=== PATIENT | male | born 1980 | race Caucasian/White ===

== ENCOUNTER 2022-03-19 05:25 | Observation (INO) ==
[2022-03-19 05:45] VITALS: BMI 32.5
[2022-03-19 06:08] LABS: BILIRUBIN,URINE NEGATIVE (NEGATIVE); BLOOD/HEMOGLOBIN,URINE 2+ (NEGATIVE); GLUCOSE, URINE 4+ (NEGATIVE); KETONES,URINE 1+ (NEGATIVE); LEUKOCYTE ESTERASE ,URINE NEGATIVE (NEGATIVE); NITRITES,URINE NEGATIVE (NEGATIVE); PROTEIN,URINE 3+ (NEGATIVE); UROBILINOGEN,URINE 2+ (NORMAL)
[2022-03-19 06:15] LABS: APPEARANCE,URINE SLIGHTLY HAZY (CLEAR); COLOR,URINE YELLOW (YELLOW)
[2022-03-19 06:16] LABS: BACTERIA,URINE NEGATIVE /HPF (NEGATIVE); SQUAMOUS EPITHELIAL CELL,UR RARE /HPF (NEGATIVE)
[2022-03-19 06:23] LABS: BASOPHILS # (AUTO) 0.1 X10^3/uL (0.0-0.1); BASOPHILS % (AUTO) 0.6 % (0.2-1.0); EOSINOPHILS # (AUTO) 0.3 x10^3/uL (0.0-0.2); EOSINOPHILS % (AUTO) 1.9 % (0.9-2.9); HEMATOCRIT 44.9 % (42.0-54.0); HEMOGLOBIN 15.9 g/dL (13.5-18.0); LYMPHOCYTES # (AUTO) 1.8 X10^3/uL (1.3-2.9); LYMPHOCYTES % (AUTO) 13.4 % (21.0-51.0); MEAN CORPUSCULAR HEMOGLOBIN 29.1 pg (27.0-34.0); MEAN CORPUSCULAR HGB CONC 35.5 g/dL (33.0-35.0); MEAN CORPUSCULAR VOLUME 81.9 fL (80.0-100.0); MEAN PLATELET VOLUME 9.2 fL (7.4-11.0); MONOCYTES # (AUTO) 1.2 x10^3/uL (0.3-0.8); NEUTROPHILS # (AUTO) 10.3 x10^3/uL (2.2-4.8); NEUTROPHILS % (AUTO) 75.1 % (42.0-75.0); RED BLOOD COUNT 5.48 X10^6/uL (4.7-6.0); RED CELL DISTRIBUTION WIDTH 13.2 % (11.6-16.5); WHITE BLOOD COUNT 13.7 X10^3/uL (3.6-10.0)
[2022-03-19 06:30] LABS: BLOOD UREA NITROGEN 18 mg/dL (7-18); CALCIUM 8.7 mg/dL (8.5-10.1); CARBON DIOXIDE 30.6 mmol/L (21-32); CHLORIDE 101 mmol/L (98-107); COR NA(FOR HYPERGLY) 141 mmol/L (136-145); CREATININE 1.17 mg/dL (0.70-1.30); SODIUM 137 mmol/L (136-145); eGFR NON BLACK RACES > 60 (>60)
--- NOTE | 2022-03-19 06:39 | RAD ---
HISTORYAbdominal pain diarrheaSTUDYAbdomen series with PA chest 6 [id number] chest: No acute findings.Abdomen series: Supine and upright views demonstrate moderately severe selective small-bowel dilatation, with paucity of colon gas. No definite air-fluid level formation or free air is identified. No organ enlargement or ascites demonstrated.IMPRESSIONSelective small-bowel dilatation with relative absence of colon gas is consistent with small-bowel obstruction. Follow-up recommended.Electronically signed by: MURIEL ASHLEY (Mar 19, 2022 06:37:43)
--- NOTE | 2022-03-19 06:48 | DR.ABDMALE ---
HPI Time seen Time Seen by Provider: 03/19/22 06:45 PCP Primary Care Physician: EDILBERTO HPI comment HPI Comment: A 41 y/o male presenting with abdominal pain for over 1 day now. He denies dizziness but that has resolved. The pain is vertical and midline. He describes this as a baseline constant dull ache with periods of exacerbation. Complaint Chief Complaint:: Pt ambulatory in ED with c/o sharp abd pain with diarrhea since saturday. states abd is hard from upper abd to lower abd. denies dizziness and weakness now. states the dizziness and weakness was saturday from not taking his blood pressure and blood sugar meds that day. states those symptoms subsided once he took his meds. COVID-19 Coronavirus risk:travel/contact w/high risk person: No Has patient experienced Coronavirus symptoms: No Reviewed Nurses Notes Review: Yes Source History provided by:: pt. Mode of arrival Mode of Arrival: Ambulatory Timing Onset of Chief Complaint: 03/17/22 Duration Duration: Constant How lon Duration: Days Location Location: Diffuse Severity Severity: Moderate Quality Quality: Aching and Cramping Context Onset: Gradually History of: None Modifying factors Worsening Factors: Nothing Associated signs and symptoms Associated Signs and Symptoms: Nausea PMH PMH Past Medical History: Yes Past Medical History: Anxiety, Asthma, Diabetes and Hypertension Past Surgical History: No Surgical History: No History Family History History of Family Medical Conditions: Yes Family Medical History: Diabetes Mellitus, Cancer, OR, Coronary Artery Disease, Heart Failure and Hypertension Social History Does patient currently use any type of tobacco product: No Have you used tobacco products in the last 12 months: No Type of Tobacco Use: None Does any household member use tobacco: No Alcohol Use: None Do you use any recreational Drugs:: No Lives With: Family Lives Where: Home Travel Risk Coronavirus risk:travel/contact w/high risk person: No Has patient experienced Coronavirus symptoms: No Infectious screening In the last 2 months have you had wt loss of >10#?: NO Have you had fever, night sweats or hemotysis?: No Have you traveled outside the country in the last 6 months?: No Isolation: Standard ROS Review of Systems Constitutional: No Symptoms Reported Eyes: No Symptoms Reported ENTM: No Symptoms Reported Respiratoy: No Symptoms Reported Cardiovascular: No Symptoms Reported Gastrointestinal/Abdominal: Abdominal Pain, Diarrhea and Nausea Genitourinary: No Symptoms Reported Neurological: No Symptoms Reported Musculoskeletal: No Symptoms Reported Integumentary: No Symptoms Reported Hematologic/Lymphatic: No Symptoms Reported Endocrine: No Symptoms Reported Psychiatric: No Symptoms Reported All Other Systems: Reviewed and Negative PE Vital Signs Vital Signs: Temp Pulse Resp BP Pulse Ox O2 Del Method 01/31/20 23:28 193/105 03/19/22 06:45 92 H 95 03/19/22 06:39 94 H 95 03/19/22 06:39 168/92 03/19/22 06:00 106 H 95 03/19/22 06:00 180/101 03/19/22 05:59 100 H 96 03/19/22 05:59 190/106 03/19/22 05:58 95 H 96 03/19/22 05:30 98.9 F 104 H 22 175/103 96 Room Air General Limitations: No Limitations General Appearance: Alert and In No Apparent Distress Head Head Exam: Normal Inspection, Atraumatic and Normocephalic Eyes Eye exam: Normal Appearance and EOMI ENT ENT Exam: Normal Exam, Normal Oropharynx, Normal External Ear Exam and Mucous Membranes Moist Neck Neck Exam: Normal Inspection, Full ROM and Trachea Midline Chest Chest Inspection: Normal Inspection and Symmetric Chest Wall Rise Respiratory Respiratory Exam: Normal Lung Sounds Bilat Cardiovascular Cardiovascular Exam: Regular Rate, Normal Rhythm, Normal Heart Sounds, +S1 and +S2 Abdominal Exam Abdominal Exam: Normal Inspection, Normal Bowel Sounds, Soft and Tenderness; negative Distention, Guarding, Rebound, Rigidity, Dimnished Bowel Sounds, Hyperactive Bowel Sounds, Hypoactive Bowel Sounds, Organomegaly, Trauma, Incision, Ascites, Mass, Bruit, Pulsatile Mass or Hernia Abdominal Tenderness: Diffuse Rectal Rectal Exam: Deferred Back Back Exam: Normal Inspection and Full ROM Extremeties Extremities Exam: Normal Inspection and Full ROM Exam: Male: Deferred Neurologic Neurological Exam: Alert and Oriented X3 Psychiatric Psychiatric Exam: Normal Affect and Normal Mood Skin Skin Exam: Dry, Intact and Normal Color COURSE Treatment Treatment: I discussed his labs. and x-ray report with him. I talked to Dr. Caal about the pt. and he agrees to admit and keeping th pt. NPO. I informed his PCP, Dr. CASANOVA of the findings and plan. The pt. is aware of plan to admit him into the hospital. Reevaluation 1st: Unchanged Education/Counseling Education/Counseling: Patient, Education and Counseling Educated On: Treatment, Diagnosis, Prognosis and Needs for Follow Up ROR Labs Reviewed Result Diagrams: 03/19/22 06:13 03/19/22 06:13 Laboratory: WBC 13.7 X10^3/uL (3.6-10.0) H 03/19/22 06:13 RBC 5.48 X10^6/uL (4.7-6.0) 03/19/22 06:13 Hgb 15.9 g/dL (13.5-18.0) 03/19/22 06:13 Hct 44.9 % (42.0-54.0) 03/19/22 06:13 MCV 81.9 fL (80.0-100.0) 03/19/22 06:13 MCH 29.1 pg (27.0-34.0) 03/19/22 06:13 MCHC 35.5 g/dL (33.0-35.0) H 03/19/22 06:13 RDW 13.2 % (11.6-16.5) 03/19/22 06:13 Plt Count 225 X10^3/uL (150.0-450.0) 03/19/22 06:13 MPV 9.2 fL (7.4-11.0) 03/19/22 06:13 Neut % (Auto) 75.1 % (42.0-75.0) H 03/19/22 06:13 Lymph % (Auto) 13.4 % (21.0-51.0) L 03/19/22 06:13 [place] % (Auto) 9.0 % (0.0-13.0) 03/19/22 06:13 Eos % (Auto) 1.9 % (0.9-2.9) 03/19/22 06:13 Baso % (Auto) 0.6 % (0.2-1.0) 03/19/22 06:13 Neut # (Auto) 10.3 x10^3/uL (2.2-4.8) H 03/19/22 06:13 Lymph # (Auto) 1.8 X10^3/uL (1.3-2.9) 03/19/22 06:13 [place] # (Auto) 1.2 x10^3/uL (0.3-0.8) H 03/19/22 06:13 Eos # (Auto) 0.3 x10^3/uL (0.0-0.2) H 03/19/22 06:13 Baso # (Auto) 0.1 X10^3/uL (0.0-0.1) 03/19/22 06:13 Absolute Nucleated RBC 0.1 /100WBC 03/19/22 06:13 Sodium 137 mmol/L (136-145) 03/19/22 06:13 Corrected Sodium 141 mmol/L (136-145) 03/19/22 06:13 Potassium 3.4 mmol/L (3.5-5.1) L 03/19/22 06:13 Chloride 101 mmol/L (98-107) 03/19/22 06:13 Carbon Dioxide 30.6 mmol/L (21-32) 03/19/22 06:13 BUN 18 mg/dL (7-18) 03/19/22 06:13 Creatinine 1.17 mg/dL (0.70-1.30) 03/19/22 06:13 Est GFR (MDRD) Af Amer > 60 (>60) 03/19/22 06:13 Est GFR (MDRD) Non-Af > 60 (>60) 03/19/22 06:13 Glucose 255 mg/dL (65-99) H 03/19/22 06:13 Calcium 8.7 mg/dL (8.5-10.1) 03/19/22 06:13 Specimen Type Clean catch urine 03/19/22 05:56 Urine Color Yellow (YELLOW) 03/19/22 05:56 Urine Appearance Slightly hazy (CLEAR) 03/19/22 05:56 Urine pH 6.0 (5.0 - 8.0) 03/19/22 05:56 Ur Specific [place] 1.030 (1.000-1.030) 03/19/22 05:56 Urine Protein 3+ (NEGATIVE) 03/19/22 05:56 Urine Glucose (UA) 4+ (NEGATIVE) 03/19/22 05:56 Urine Ketones 1+ (NEGATIVE) 03/19/22 05:56 Urine Blood 2+ (NEGATIVE) 03/19/22 05:56 Urine Nitrite Negative (NEGATIVE) 03/19/22 05:56 Urine Bilirubin Negative (NEGATIVE) 03/19/22 05:56 Urine Urobilinogen 2+ (NORMAL) 03/19/22 05:56 Ur Leukocyte Esterase Negative (NEGATIVE) 03/19/22 05:56 Urine RBC 3-5 /HPF (0-3) A 03/19/22 05:56 Urine WBC 0-2 /HPF (0-5) 03/19/22 05:56 Ur Squamous Epith Cells Rare /HPF (NEGATIVE) 03/19/22 05:56 Urine Bacteria Negative /HPF (NEGATIVE) 03/19/22 05:56 Ur Culture Indicated? No/not indicated 03/19/22 05:56 SARS CoV-2 RNA Rapid RAQUEL Negative (NEGATIVE) 03/19/22 05:49 Opioid Opioid Risk Tool Age (Salomon box if 16-45): Yes History of Preadolescent Sexual Abuse: No Total: 1 Total Score Risk Category: Low Risk Copyright: Aristides RIZO predicting aberrant behaviors Discharge Plan Diagnosis Discharge Problem: SBO (small bowel obstruction) Type 2 diabetes mellitus Qualifiers: Diabetes mellitus watcher automat long goods insulin use: without watcher automat long goods use Diabetes mellitus complication status: without complication Qualified Code(s): E11.9 - Type 2 diabetes mellitus without complications Discharge Plan Patient Disposition: ADMITTED INPATIENT Condition: Stable Prescriptions: No Action anastrozole 1 mg tablet 1 tab PO QDAY metoprolol succinate 100 mg tablet extended release 24 hr 1 tab PO QDAY docusate sodium [Colace] 100 mg Capsule 100 mg PO BID lisinopril 40 mg tablet 1 tab PO QDAY loratadine [Allergy Relief (loratadine)] 10 mg tablet 1 tab PO QDAY metformin 500 mg tablet extended release 24 hr 1 tab PO BID escitalopram oxalate 20 mg tablet 1 tab PO DAILY Health Concerns: Post Hospitalization: new medications and changes needed to prevent readmission or further decline. Pt educated and given instructions on all concerns. Plan of Treatment: Continue with present treatment and follow up plan. Pt is to keep follow up appointment as instructed and take medications as ordered. Orders to Discharge Patient Discharge Orders: Transfer (Routine); Ordered 03/19/22 Ordered By: VAISHALI LAZCANO Follow ups/Referrals Follow ups/Referrals: STEVEN CASANOVA [Primary Care Provider] - 3 days ADDITIONAL NOTES Additional Notes Additional Notes: Name: JOHNATHAN TANGCompa#: [id number]: [id number]: [id number]: MLocation: EROrder Number(s): [id number](s):ACUTE ABDOMEN SERIES Ordering Physician: VAISHALI LAZCANO Primary Care: STEVEN CASANOVA Service Date: 03/19/22 Service Time: 607 HISTORY Abdominal pain diarrhea STUDY Abdomen series with PA chest 6 views COMPARISON 05/26/2021 FINDINGS PA chest: No acute findings. Abdomen series: Supine and upright views demonstrate moderately severe selective small-bowel dilatation, with paucity of colon gas. No definite air-fluid level formation or free air is identified. No organ enlargement or ascites demonstrated. IMPRESSION Selective small-bowel dilatation with relative absence of colon gas is consistent with small-bowel obstruction. Follow-up recommended. Electronically signed by: MURIEL ASHLEY (Mar 19, 2022 06:37:43) Report Electronically signed: 03/19/22 0639 CC: Vaishali Lazcano
[2022-03-19] MEDS ORDERED: NS 1,000 ML IV 1,000 ML IV ONE (06:52)
[2022-03-19] MEDS ORDERED: NS 1,000 ML IV 1,000 ML ONE (06:59)
[2022-03-19 09:13] LABS: ALANINE AMINOTRANSFERASE 33 Units/L (12-78); ALBUMIN 3.1 g/dL (3.4-5.0); ALKALINE PHOSPHATASE 97 Units/L (46-116); ASPARTATE AMINO TRANSFERASE 17 Units/L (15-37); COR CA(FOR HYPOALB) 9.4 mg/dL (8.5-10.1); TOTAL PROTEIN 7.2 g/dL (6.4-8.2)
[2022-03-19] MEDS ORDERED: MICRO K EXTEN CAP 10 MEQ PO PRN (09:23)
[2022-03-19] MEDS ORDERED: KLOR-CON PO PRN (09:23)
[2022-03-19] MEDS ORDERED: POTASSIUM CHLORIDE LIQ 20 MEQ UDC PO PRN (09:23)
[2022-03-19] MEDS ORDERED: K-RIDER 10 MEQ/NS 100 ML 10 MEQ/100 ML BAG IV PRN (09:23)
[2022-03-19] MEDS ORDERED: POTASSIUM CHL 60 MEQ/NS 0.45% 500 ML IV PRN (09:23)
[2022-03-19] MEDS ORDERED: POTASSIUM CHL 40 MEQ/NS 0.45% 500 ML IV PRN (09:23)
[2022-03-19] MEDS: K-DUR TAB 20 MEQ PO PRN (10:13)
[2022-03-19] MEDS ORDERED: NS 100 ML IV 100 ML ONE (12:54)
[2022-03-19] MEDS: NovoLIN R (or HumuLIN R) SUBCUT PRN ×2 (13:45→17:34)
[2022-03-19] MEDS: VASOTEC INJ 2.5 MG VIAL IVP PRN ×2 (17:30→20:33)
[2022-03-19] MEDS: MORPHINE SULFATE INJ 2 MG INJ IVP PRN (21:18)
--- NOTE | 2022-03-19 21:31 | CT ---
HISTORYSBOSTUDYABDOMEN/PELVIS WITH CONCOMPARISONNoneTECHNIQUEAxial CT images of the abdomen and pelvis were obtained after the administration of IV contrast, 100 mL Isovue 370, and reformatted into coronal and sagittal planes for further evaluation.Radiation dose: 1187.20 mGy-cm total DLPFINDINGSLung bases are clear.Stomach appears normal.Diffuse fatty infiltration of the liver.Spleen, pancreas and left adrenal glands are unremarkable.1 cm indeterminate nodule in the right adrenal gland as well as a 1.2 cm adrenal myelolipoma.Gallbladder appears normal with no biliary dilatation.Homogeneous enhancement of the kidneys without hydronephrosis or hydroureter.Unremarkable appearance of the urinary bladder.Imaged reproductive structures are unremarkable.Mildly distended fluid-filled loops of small bowel in the left upper to mid abdomen with mild edema in the associated mesentery.Gradual transition from mildly widened to largely decompressed small bowel with no abrupt transition point as well as enteric contrast throughout the decompressed portion of the small bowel and cecum.No evidence of acute appendicitis.No pneumoperitoneum.No significant fluid collection.No adenopathy.No acute osseous abnormality.IMPRESSION1. Mildly widened fluid-filled loops of small bowel in the left upper to mid abdomen with gradual transition to decompressed small bowel. There is the same contrast density within the dilated small bowel as in the decompressed small bowel with no evidence of a mechanical obstruction. Mild edema in the mesentery to the widened small bowel loops in the left abdomen. Findings likely represent a nonspecific enteritis or ileus.2. Diffuse fatty infiltration of the liver.3. 1 cm indeterminate nodule in the right adrenal gland likely represents a lipid poor adenoma in the absence of known primary malignancy. Additionally, there is a 1.2 cm adrenal myelolipoma in the right adrenal gland.Electronically signed by: Greg Carranza (Mar 19, 2022 21:28:45)
[2022-03-20 06:09] LABS: ALANINE AMINOTRANSFERASE 34 Units/L (12-78); ALBUMIN 2.9 g/dL (3.4-5.0); ALKALINE PHOSPHATASE 78 Units/L (46-116); ASPARTATE AMINO TRANSFERASE 18 Units/L (15-37); BLOOD UREA NITROGEN 12 mg/dL (7-18); CALCIUM 8.7 mg/dL (8.5-10.1); CARBON DIOXIDE 31.7 mmol/L (21-32); CHLORIDE 104 mmol/L (98-107); COR CA(FOR HYPOALB) 9.6 mg/dL (8.5-10.1); COR NA(FOR HYPERGLY) 141 mmol/L (136-145); SODIUM 140 mmol/L (136-145); TOTAL PROTEIN 6.9 g/dL (6.4-8.2); eGFR NON BLACK RACES > 60 (>60)
[2022-03-20 06:34] LABS: BASOPHILS # (AUTO) 0.1 X10^3/uL (0.0-0.1); BASOPHILS % (AUTO) 1.2 % (0.2-1.0); EOSINOPHILS # (AUTO) 0.3 x10^3/uL (0.0-0.2); EOSINOPHILS % (AUTO) 3.5 % (0.9-2.9); HEMATOCRIT 41.7 % (42.0-54.0); HEMOGLOBIN 14.9 g/dL (13.5-18.0); LYMPHOCYTES # (AUTO) 1.7 X10^3/uL (1.3-2.9); LYMPHOCYTES % (AUTO) 22.2 % (21.0-51.0); MEAN CORPUSCULAR HEMOGLOBIN 29.6 pg (27.0-34.0); MEAN CORPUSCULAR HGB CONC 35.8 g/dL (33.0-35.0); MEAN CORPUSCULAR VOLUME 82.7 fL (80.0-100.0); MEAN PLATELET VOLUME 9.7 fL (7.4-11.0); MONOCYTES # (AUTO) 0.7 x10^3/uL (0.3-0.8); MONOCYTES % (AUTO) 8.8 % (0.0-13.0); NEUTROPHILS # (AUTO) 4.9 x10^3/uL (2.2-4.8); NEUTROPHILS % (AUTO) 64.3 % (42.0-75.0); RED BLOOD COUNT 5.04 X10^6/uL (4.7-6.0); RED CELL DISTRIBUTION WIDTH 13.1 % (11.6-16.5); WHITE BLOOD COUNT 7.6 X10^3/uL (3.6-10.0)
[2022-03-20] MEDS: VASOTEC INJ 2.5 MG VIAL IVP PRN ×2 (08:36→17:00)
[2022-03-20] MEDS ORDERED: LR 1,000 ML IV 1,000 ML IV ONE (09:07)
[2022-03-20] MEDS ORDERED: GLUCOPHAGE XR 24-HR PO SCH (10:00)
[2022-03-20] MEDS ORDERED: LEXAPRO ONE (10:16)
[2022-03-20] MEDS ORDERED: TOPROL XL PO ONE (10:16)
[2022-03-20] MEDS: COLACE CAP 100 MG PO SCH ×2 (10:19→20:51)
[2022-03-20] MEDS: ZESTRIL TAB 40 MG PO SCH (10:19)
[2022-03-20] MEDS: LEXAPRO PO SCH (10:19)
[2022-03-20] MEDS: K-DUR TAB 20 MEQ PO PRN ×2 (10:20→13:39)
[2022-03-20] MEDS: TOPROL XL PO SCH (10:20)
[2022-03-20] MEDS: ARIMIDEX PO SCH (10:25)
[2022-03-20] MEDS: MAGNESIUM SULFATE 1 GRAM/100 mL PREMIX 1 G/100 ML BAG IV PRN ×2 (11:16→13:39)
[2022-03-20] MEDS: LR 1,000 ML IV 1,000 ML IV SCH ×3 (11:39→21:16)
[2022-03-20] MEDS: APRESOLINE TAB 25 MG PO SCH ×2 (14:20→21:14)
[2022-03-20] MEDS: NovoLIN R (or HumuLIN R) SUBCUT PRN ×2 (17:12→20:53)
[2022-03-20] MEDS: MORPHINE SULFATE INJ 2 MG INJ IVP PRN (20:52)
[2022-03-21] MEDS: TYLENOL 325 MG TAB PO PRN ×2 (01:46→08:49)
[2022-03-21 05:22] LABS: BASOPHILS # (AUTO) 0.1 X10^3/uL (0.0-0.1); BASOPHILS % (AUTO) 1.1 % (0.2-1.0); EOSINOPHILS # (AUTO) 0.2 x10^3/uL (0.0-0.2); EOSINOPHILS % (AUTO) 2.4 % (0.9-2.9); HEMATOCRIT 40.8 % (42.0-54.0); HEMOGLOBIN 14.4 g/dL (13.5-18.0); LYMPHOCYTES % (AUTO) 21.9 % (21.0-51.0); MEAN CORPUSCULAR HEMOGLOBIN 29.1 pg (27.0-34.0); MEAN CORPUSCULAR HGB CONC 35.3 g/dL (33.0-35.0); MEAN CORPUSCULAR VOLUME 82.5 fL (80.0-100.0); MEAN PLATELET VOLUME 9.5 fL (7.4-11.0); MONOCYTES # (AUTO) 0.6 x10^3/uL (0.3-0.8); MONOCYTES % (AUTO) 6.7 % (0.0-13.0); NEUTROPHILS # (AUTO) 6.2 x10^3/uL (2.2-4.8); NEUTROPHILS % (AUTO) 67.9 % (42.0-75.0); RED BLOOD COUNT 4.94 X10^6/uL (4.7-6.0); RED CELL DISTRIBUTION WIDTH 12.9 % (11.6-16.5); WHITE BLOOD COUNT 9.1 X10^3/uL (3.6-10.0)
[2022-03-21 05:32] LABS: ALANINE AMINOTRANSFERASE 33 Units/L (12-78); ALBUMIN 2.9 g/dL (3.4-5.0); ALKALINE PHOSPHATASE 78 Units/L (46-116); ASPARTATE AMINO TRANSFERASE 18 Units/L (15-37); BLOOD UREA NITROGEN 7 mg/dL (7-18); CALCIUM 8.6 mg/dL (8.5-10.1); CARBON DIOXIDE 30.6 mmol/L (21-32); CHLORIDE 104 mmol/L (98-107); COR CA(FOR HYPOALB) 9.5 mg/dL (8.5-10.1); COR NA(FOR HYPERGLY) 141 mmol/L (136-145); CREATININE 0.79 mg/dL (0.70-1.30); SODIUM 140 mmol/L (136-145); TOTAL PROTEIN 6.9 g/dL (6.4-8.2); eGFR NON BLACK RACES > 60 (>60)
[2022-03-21] MEDS: APRESOLINE TAB 25 MG PO SCH ×4 (05:44→21:07)
[2022-03-21] MEDS: LR 1,000 ML IV 1,000 ML IV SCH ×5 (05:44→21:30)
[2022-03-21] MEDS ORDERED: LEXAPRO ONE (08:20)
[2022-03-21] MEDS ORDERED: TOPROL XL PO ONE ×2 (08:20→09:23)
[2022-03-21] MEDS: ARIMIDEX PO SCH (08:46)
[2022-03-21] MEDS: COLACE CAP 100 MG PO SCH ×2 (08:46→20:42)
[2022-03-21] MEDS: ZESTRIL TAB 40 MG PO SCH (08:46)
[2022-03-21] MEDS: LEXAPRO PO SCH (08:47)
[2022-03-21] MEDS: TOPROL XL PO SCH (08:47)
[2022-03-21] MEDS ORDERED: TOPROL XL PO STA (09:00)
[2022-03-21] MEDS ORDERED: ZOFRAN INJ 4 MG VIAL IVP PRN (10:02)
[2022-03-21] MEDS: K-DUR TAB 20 MEQ PO PRN (10:18)
--- NOTE | 2022-03-21 10:54 | DR.PROGNOT ---
Hospital Progress Notes - Progress Note for Day of: Progress Note Date: 03/21/22 - Chief Complaint Chief Complaint: feeling better with no abdominal pain .. having loose BM. abdominal KUB showed improved SBO. CBC, CMP are normal - Past Medical Family Social History Past Med/Fam/Surg Hx: No changes since H&P Allergies: Allergies No Known Drug Allergies [NKDA] Allergy (Verified 01/31/20 23:28) - Review Of Systems ROS: No change since H&P - Vital Signs Vital Signs: Temperature 98.0 F Pulse Rate [Left] 88 Pulse Rate 88 Respiratory Rate 20 Blood Pressure [Left Arm] 188/87 Blood Pressure 187/91 O2 Sat by Pulse Oximetry 96 - Physical Exam Oriented: Normal Eyes: Normal Ear: Normal Nose: Normal Throat: Normal Respiratory: Normal Cardiovascular: Normal : Normal GI: Tenderness: Normal Skin: Normal Musculoskeletal: Normal Psychiatric: Normal Speech Pattern: Clear, Appropriate - Laboratory and Diagnostics Result Diagrams: 03/21/22 04:28 03/21/22 04:28 Labs: Laboratory WBC 9.1 X10^3/uL (3.6-10.0) 03/21/22 04:28 RBC 4.94 X10^6/uL (4.7-6.0) 03/21/22 04:28 Hgb 14.4 g/dL (13.5-18.0) 03/21/22 04:28 Hct 40.8 % (42.0-54.0) L 03/21/22 04:28 MCV 82.5 fL (80.0-100.0) 03/21/22 04:28 MCH 29.1 pg (27.0-34.0) 03/21/22 04:28 MCHC 35.3 g/dL (33.0-35.0) H 03/21/22 04:28 RDW 12.9 % (11.6-16.5) 03/21/22 04:28 Plt Count 254 X10^3/uL (150.0-450.0) 03/21/22 04:28 MPV 9.5 fL (7.4-11.0) 03/21/22 04:28 Neut % (Auto) 67.9 % (42.0-75.0) 03/21/22 04:28 Lymph % (Auto) 21.9 % (21.0-51.0) 03/21/22 04:28 [place] % (Auto) 6.7 % (0.0-13.0) 03/21/22 04:28 Eos % (Auto) 2.4 % (0.9-2.9) 03/21/22 04:28 Baso % (Auto) 1.1 % (0.2-1.0) H 03/21/22 04:28 Neut # (Auto) 6.2 x10^3/uL (2.2-4.8) H 03/21/22 04:28 Lymph # (Auto) 2.0 X10^3/uL (1.3-2.9) 03/21/22 04:28 [place] # (Auto) 0.6 x10^3/uL (0.3-0.8) 03/21/22 04:28 Eos # (Auto) 0.2 x10^3/uL (0.0-0.2) 03/21/22 04:28 Baso # (Auto) 0.1 X10^3/uL (0.0-0.1) 03/21/22 04:28 Absolute Nucleated RBC 0.1 /100WBC 03/21/22 04:28 Sodium 140 mmol/L (136-145) 03/21/22 04:28 Corrected Sodium 141 mmol/L (136-145) 03/21/22 04:28 Potassium 3.7 mmol/L (3.5-5.1) 03/21/22 04:28 Chloride 104 mmol/L (98-107) 03/21/22 04:28 Carbon Dioxide 30.6 mmol/L (21-32) 03/21/22 04:28 BUN 7 mg/dL (7-18) 03/21/22 04:28 Creatinine 0.79 mg/dL (0.70-1.30) 03/21/22 04:28 Est GFR (MDRD) Af Amer > 60 (>60) 03/21/22 04:28 Est GFR (MDRD) Non-Af > 60 (>60) 03/21/22 04:28 Glucose 156 mg/dL (65-99) H 03/21/22 04:28 POC Glucose (mg/dL) 215 mg/dL (65-99) H 03/20/22 19:14 Calcium 8.6 mg/dL (8.5-10.1) 03/21/22 04:28 Corrected Calcium 9.5 mg/dL (8.5-10.1) 03/21/22 04:28 Magnesium 1.9 mg/dL (1.7-2.9) 03/20/22 05:30 Total Bilirubin 0.70 mg/dL (0.2-1.0) 03/21/22 04:28 AST 18 Units/L (15-37) 03/21/22 04:28 ALT 33 Units/L (12-78) 03/21/22 04:28 Alkaline Phosphatase 78 Units/L (46-116) 03/21/22 04:28 Total Protein 6.9 g/dL (6.4-8.2) 03/21/22 04:28 Albumin 2.9 g/dL (3.4-5.0) L 03/21/22 04:28 Globulin 4.0 g/dL (2.5-4.5) 03/21/22 04:28 Albumin/Globulin Ratio 0.7 Ratio (1.1-2.1) L 03/21/22 04:28 Specimen Type Clean catch urine 03/19/22 05:56 Urine Color Yellow (YELLOW) 03/19/22 05:56 Urine Appearance Slightly hazy (CLEAR) 03/19/22 05:56 Urine pH 6.0 (5.0 - 8.0) 03/19/22 05:56 Ur Specific [place] 1.030 (1.000-1.030) 03/19/22 05:56 Urine Protein 3+ (NEGATIVE) 03/19/22 05:56 Urine Glucose (UA) 4+ (NEGATIVE) 03/19/22 05:56 Urine Ketones 1+ (NEGATIVE) 03/19/22 05:56 Urine Blood 2+ (NEGATIVE) 03/19/22 05:56 Urine Nitrite Negative (NEGATIVE) 03/19/22 05:56 Urine Bilirubin Negative (NEGATIVE) 03/19/22 05:56 Urine Urobilinogen 2+ (NORMAL) 03/19/22 05:56 Ur Leukocyte Esterase Negative (NEGATIVE) 03/19/22 05:56 Urine RBC 3-5 /HPF (0-3) A 03/19/22 05:56 Urine WBC 0-2 /HPF (0-5) 03/19/22 05:56 Ur Squamous Epith Cells Rare /HPF (NEGATIVE) 03/19/22 05:56 Urine Bacteria Negative /HPF (NEGATIVE) 03/19/22 05:56 Ur Culture Indicated? No/not indicated 03/19/22 05:56 SARS CoV-2 RNA Rapid RAQUEL Negative (NEGATIVE) 03/19/22 05:49 - Assessment and Plan 2: improving SBO. to advance diet , same IVF , repeat X Ray in am .. - Problem Patient Problems: Patient Problems SBO (small bowel obstruction) (Acute) K56.609 Type 2 diabetes mellitus (Acute) E11.9
[2022-03-21] MEDS: NovoLIN R (or HumuLIN R) SUBCUT PRN ×2 (11:19→16:16)
--- NOTE | 2022-03-21 13:37 | RAD ---
HISTORYSBOSTUDYKUBCOMPARISONCT abdomen 03/19/2022FINDINGSThere are dilated segments of small bowel in the central abdomen. The colon is collapsed and contains a small amount of residual contrast material from recent CT. There is no mass formation or ascites identified.IMPRESSIONModerate dilatation of central abdominal small bowel segments consistent with ileus or partial obstruction.Electronically signed by: MURIEL ASHLEY (Mar 21, 2022 13:35:09)
[2022-03-22] MEDS: LR 1,000 ML IV 1,000 ML IV SCH ×3 (02:09→10:58)
[2022-03-22] MEDS: APRESOLINE TAB 25 MG PO SCH (05:25)
[2022-03-22] MEDS: TYLENOL 325 MG TAB PO PRN (05:31)
--- NOTE | 2022-03-22 05:54 | RAD ---
PROCEDURE: Abdomen X-ray 1 View .HISTORY: Follow-up small-bowel obstruction.TECHNIQUE: AP supine abdomen view .COMPARISON: 03/21/2022.TECHNICAL QUALITY: Satisfactory .FINDINGS:Mild gas and feces in the colon without distention. Some dilated small bowel loops mid abdomen could be related to early small-bowel obstruction and appears similar to previous study.No organomegaly.No other abnormality identified.IMPRESSION:Continued dilated small bowel loops mid abdomen could represent early partial obstruction and follow-up films may be helpful.Electronically signed by: Cayetano Morris (Mar 22, 2022 05:52:12)
[2022-03-22 06:25] LABS: BASOPHILS # (AUTO) 0.1 X10^3/uL (0.0-0.1); BASOPHILS % (AUTO) 0.9 % (0.2-1.0); EOSINOPHILS # (AUTO) 0.1 x10^3/uL (0.0-0.2); EOSINOPHILS % (AUTO) 0.7 % (0.9-2.9); HEMATOCRIT 39.7 % (42.0-54.0); HEMOGLOBIN 14.1 g/dL (13.5-18.0); LYMPHOCYTES # (AUTO) 2.5 X10^3/uL (1.3-2.9); LYMPHOCYTES % (AUTO) 20.5 % (21.0-51.0); MEAN CORPUSCULAR HEMOGLOBIN 29.4 pg (27.0-34.0); MEAN CORPUSCULAR HGB CONC 35.6 g/dL (33.0-35.0); MEAN CORPUSCULAR VOLUME 82.4 fL (80.0-100.0); MEAN PLATELET VOLUME 9.8 fL (7.4-11.0); MONOCYTES # (AUTO) 0.9 x10^3/uL (0.3-0.8); NEUTROPHILS # (AUTO) 8.7 x10^3/uL (2.2-4.8); NEUTROPHILS % (AUTO) 70.9 % (42.0-75.0); RED BLOOD COUNT 4.82 X10^6/uL (4.7-6.0); RED CELL DISTRIBUTION WIDTH 13.1 % (11.6-16.5); WHITE BLOOD COUNT 12.2 X10^3/uL (3.6-10.0)
[2022-03-22 06:41] LABS: ALANINE AMINOTRANSFERASE 47 Units/L (12-78); ALBUMIN 2.7 g/dL (3.4-5.0); ALKALINE PHOSPHATASE 78 Units/L (46-116); ASPARTATE AMINO TRANSFERASE 27 Units/L (15-37); BLOOD UREA NITROGEN 8 mg/dL (7-18); CALCIUM 8.4 mg/dL (8.5-10.1); CARBON DIOXIDE 25.4 mmol/L (21-32); CHLORIDE 102 mmol/L (98-107); COR CA(FOR HYPOALB) 9.4 mg/dL (8.5-10.1); COR NA(FOR HYPERGLY) 138 mmol/L (136-145); CREATININE 0.91 mg/dL (0.70-1.30); SODIUM 137 mmol/L (136-145); TOTAL PROTEIN 6.4 g/dL (6.4-8.2); eGFR NON BLACK RACES > 60 (>60)
[2022-03-22 08:02] VITALS: BP 120/60
[2022-03-22] MEDS ORDERED: LEXAPRO ONE (08:04)
[2022-03-22] MEDS: LEXAPRO PO SCH (08:08)
[2022-03-22] MEDS: COLACE CAP 100 MG PO SCH (08:08)
[2022-03-22] MEDS: K-DUR TAB 20 MEQ PO PRN (08:09)
[2022-03-22] MEDS: ARIMIDEX PO SCH (08:10)
[2022-03-22] MEDS: ZESTRIL TAB 40 MG PO SCH (08:11)
[2022-03-22] MEDS ORDERED: COLACE CAP 100 MG PO STA (10:12)
[2022-03-22] MEDS ORDERED: CITROMA PO ONE (10:12)
--- NOTE | 2022-03-22 11:22 | DR.PROGNOT ---
Hospital Progress Notes - Progress Note for Day of: Progress Note Date: 03/22/22 - Chief Complaint Chief Complaint: feeling better with no abdominal pain .. no BM today . no bleeding . abdominal KUB showed improved SBO. WBC 12,2 .. CMP are normal - Past Medical Family Social History Past Med/Fam/Surg Hx: No changes since H&P Allergies: Allergies No Known Drug Allergies [NKDA] Allergy (Verified 01/31/20 23:28) - Review Of Systems ROS: No change since H&P - Vital Signs Vital Signs: Temperature 98.2 F Pulse Rate [Left] 82 Pulse Rate 88 Respiratory Rate 20 Blood Pressure [Left Arm] 120/60 Blood Pressure 187/91 O2 Sat by Pulse Oximetry 95 - Physical Exam Oriented: Normal Eyes: Normal Ear: Normal Nose: Normal Throat: Normal Respiratory: Normal Cardiovascular: Normal : Normal GI: Tenderness: Normal, Other (soft abdomen with mild tympany mid andl Lt side .. BS+) Skin: Normal Musculoskeletal: Normal Psychiatric: Normal Speech Pattern: Clear, Appropriate - Laboratory and Diagnostics Result Diagrams: 03/22/22 05:07 03/22/22 05:07 Labs: Laboratory WBC 12.2 X10^3/uL (3.6-10.0) H 03/22/22 05:07 RBC 4.82 X10^6/uL (4.7-6.0) 03/22/22 05:07 Hgb 14.1 g/dL (13.5-18.0) 03/22/22 05:07 Hct 39.7 % (42.0-54.0) L 03/22/22 05:07 MCV 82.4 fL (80.0-100.0) 03/22/22 05:07 MCH 29.4 pg (27.0-34.0) 03/22/22 05:07 MCHC 35.6 g/dL (33.0-35.0) H 03/22/22 05:07 RDW 13.1 % (11.6-16.5) 03/22/22 05:07 Plt Count 274 X10^3/uL (150.0-450.0) 03/22/22 05:07 MPV 9.8 fL (7.4-11.0) 03/22/22 05:07 Neut % (Auto) 70.9 % (42.0-75.0) 03/22/22 05:07 Lymph % (Auto) 20.5 % (21.0-51.0) L 03/22/22 05:07 [place] % (Auto) 7.0 % (0.0-13.0) 03/22/22 05:07 Eos % (Auto) 0.7 % (0.9-2.9) L 03/22/22 05:07 Baso % (Auto) 0.9 % (0.2-1.0) 03/22/22 05:07 Neut # (Auto) 8.7 x10^3/uL (2.2-4.8) H 03/22/22 05:07 Lymph # (Auto) 2.5 X10^3/uL (1.3-2.9) 03/22/22 05:07 [place] # (Auto) 0.9 x10^3/uL (0.3-0.8) H 03/22/22 05:07 Eos # (Auto) 0.1 x10^3/uL (0.0-0.2) 03/22/22 05:07 Baso # (Auto) 0.1 X10^3/uL (0.0-0.1) 03/22/22 05:07 Absolute Nucleated RBC 0.0 /100WBC 03/22/22 05:07 Sodium 137 mmol/L (136-145) 03/22/22 05:07 Corrected Sodium 138 mmol/L (136-145) 03/22/22 05:07 Potassium 3.4 mmol/L (3.5-5.1) L 03/22/22 05:07 Chloride 102 mmol/L (98-107) 03/22/22 05:07 Carbon Dioxide 25.4 mmol/L (21-32) 03/22/22 05:07 BUN 8 mg/dL (7-18) 03/22/22 05:07 Creatinine 0.91 mg/dL (0.70-1.30) 03/22/22 05:07 Est GFR (MDRD) Af Amer > 60 (>60) 03/22/22 05:07 Est GFR (MDRD) Non-Af > 60 (>60) 03/22/22 05:07 Glucose 155 mg/dL (65-99) H 03/22/22 05:07 POC Glucose (mg/dL) 160 mg/dL (65-99) H 03/22/22 05:28 Calcium 8.4 mg/dL (8.5-10.1) L 03/22/22 05:07 Corrected Calcium 9.4 mg/dL (8.5-10.1) 03/22/22 05:07 Magnesium 1.9 mg/dL (1.7-2.9) 03/20/22 05:30 Total Bilirubin 0.60 mg/dL (0.2-1.0) 03/22/22 05:07 AST 27 Units/L (15-37) 03/22/22 05:07 ALT 47 Units/L (12-78) 03/22/22 05:07 Alkaline Phosphatase 78 Units/L (46-116) 03/22/22 05:07 Total Protein 6.4 g/dL (6.4-8.2) 03/22/22 05:07 Albumin 2.7 g/dL (3.4-5.0) L 03/22/22 05:07 Globulin 3.7 g/dL (2.5-4.5) 03/22/22 05:07 Albumin/Globulin Ratio 0.7 Ratio (1.1-2.1) L 03/22/22 05:07 Specimen Type Clean catch urine 03/19/22 05:56 Urine Color Yellow (YELLOW) 03/19/22 05:56 Urine Appearance Slightly hazy (CLEAR) 03/19/22 05:56 Urine pH 6.0 (5.0 - 8.0) 03/19/22 05:56 Ur Specific [place] 1.030 (1.000-1.030) 03/19/22 05:56 Urine Protein 3+ (NEGATIVE) 03/19/22 05:56 Urine Glucose (UA) 4+ (NEGATIVE) 03/19/22 05:56 Urine Ketones 1+ (NEGATIVE) 03/19/22 05:56 Urine Blood 2+ (NEGATIVE) 03/19/22 05:56 Urine Nitrite Negative (NEGATIVE) 03/19/22 05:56 Urine Bilirubin Negative (NEGATIVE) 03/19/22 05:56 Urine Urobilinogen 2+ (NORMAL) 03/19/22 05:56 Ur Leukocyte Esterase Negative (NEGATIVE) 03/19/22 05:56 Urine RBC 3-5 /HPF (0-3) A 03/19/22 05:56 Urine WBC 0-2 /HPF (0-5) 03/19/22 05:56 Ur Squamous Epith Cells Rare /HPF (NEGATIVE) 03/19/22 05:56 Urine Bacteria Negative /HPF (NEGATIVE) 03/19/22 05:56 Ur Culture Indicated? No/not indicated 03/19/22 05:56 SARS CoV-2 RNA Rapid RAQUEL Negative (NEGATIVE) 03/19/22 05:49 - Assessment and Plan 2: improving SBO. on soft diet .. , same IVF ,. to follow as out Pt in 10 days .. needs future GI Endoscopy. - Problem Patient Problems: Patient Problems SBO (small bowel obstruction) (Acute) K56.609 Type 2 diabetes mellitus (Acute) E11.9
[2022-03-23] MEDS ORDERED: COLACE CAP 100 MG PO SCH (09:00)
== END 2022-03-22 12:05 | disposition home or self-care (01) ==
LOC: SUPCPDRO → MED/SURG 05:29 → ER 05:29 → MED/SURG 08:10
PROVIDERS: ADMIT Obstetrics & Gynecology Obstetrics; ATTEND Obstetrics & Gynecology Obstetrics
DX: R06.02 Shortness of breath; E11.65 Type 2 diabetes mellitus with hyperglycemia; I10 Essential (primary) hypertension; K56.609 Unspecified intestinal obstruction, unspecified as to partial versus complete obstruction; K59.09 Other constipation; Z20.822 Contact with and (suspected) exposure to COVID-19; R10.84 Generalized abdominal pain